=== PATIENT | female | born 2000 | race Two or more races ===

== ENCOUNTER 2023-11-30 18:56 | Emergency (ER) | payer MEDICAID ==
[~2023-11-30] VITALS: Ht 160 cm; Wt 54.4 kg
[2023-11-30 19:18] VITALS: BP 127/76; PULSE 84; RESP 16; TEMP 98.3; O2SAT 99
[2023-11-30] MEDS ORDERED: KETOROLAC 15MG/ML VIAL IM ONE (23:15)
[2023-11-30 23:49] LABS: BASOPHILS % 0.6 % (0.0-2.0); EOSINOPHILS % 3.2 % (0.0-5.0); HEMATOCRIT. 36.7 % (36.0-48.0); HEMOGLOBIN. 11.9 g/dL (12.0-16.0); LYMPHOCYTES % 37.6 % (20.0-50.0); MEAN CORPUSCULAR HEMOGLOBIN 27.3 pg (28.0-32.0); MEAN CORPUSCULAR HGB CONC 32.3 g/dL (31.0-37.0); MEAN CORPUSCULAR VOLUME 84.4 fL (81.0-99.0); MEAN PLATELET VOLUME 9.5 fl (7.4-10.4); MONOCYTES % 7.8 % (2.0-8.0); NEUTROPHILS % 50.8 % (40.0-76.0); PLATELET 273 x1000/uL (130-400); RED BLOOD CELL COUNT 4.35 mill/uL (4.2-5.4); RED CELL DISTRIBUTION WIDTH 15.6 % (11.6-14.6); WHITE BLOOD COUNT 7.3 x1000/uL (4.5-11.0)
[2023-11-30 23:53] LABS: CHLORIDE 106 mEq/L (98-107); POTASSIUM 3.4 mEq/L (3.5-5.1); SODIUM 136 mEq/L (136-145)
[2023-11-30 23:54] LABS: CALCIUM 9.5 mg/dL (8.7-10.4); CARBON DIOXIDE 26 mEq/L (21-32)
[2023-11-30 23:59] LABS: CREATININE 0.4 mg/dL (0.6-1.0); GLUCOSE 85 mg/dL (70-105); UREA NITROGEN BLOOD 10 mg/dL (9-23)
[2023-12-01 00:01] LABS: ALANINE AMINOTRANSFERASE 15 IU/L (10-49); ALBUMIN 4.5 g/dL (3.2-4.8); ASPARTATE AMINOTRANSFERASE 19 IU/L (<34); BILIRUBIN TOTAL 0.6 mg/dL (0.1-1.0); PROTEIN TOTAL 7.5 g/dL (6.0-8.3)
== END 2023-11-30 23:47 | disposition home or self-care (01) ==
LOC: ER 18:56
DX: R10.13 Epigastric pain (principal)
CPT/HCPCS: 36415; 74018; 76705; 80053; 81025; 85025; 99284